=== PATIENT | male | born 1985 | race Caucasian/White ===

== ENCOUNTER → 2017-11-28 16:52 | Outpatient (CLI) | payer OTHER, SELFPAY ==
[2017-11-28 18:12] LABS: BUN 10 mg/dL (7-18); Creatinine, Serum 0.98 mg/dL (0.70-1.30); Glucose 82 mg/dL (74-106)
[2017-11-28 18:13] LABS: Anion Gap 12 (5-15); BUN/Creat Ratio 10.2 RATIO (10-20); Calcium,Total 8.8 mg/dL (8.5-10.1); Chloride 100 mmol/L (98-107); Cholesterol 224 mg/dL (200); EST Glomerular Filtration Rate 93 mL/min (>60); Est Glom Filt Rate - Afr Amer 112 mL/min (>60); High Density Lipoprotein 37 mg/dL; Potassium 3.8 mmol/L (3.5-5.1); Sodium Level 139 mmol/L (136-145); T4 Total, Thyroxin 10.9 ug/dL (4.5-12.1); Triglycerides 188 mg/dL; Very Low Density Lipoprotein 38 mg/dL (5-40)
== END ==
PROVIDERS: Family Provider Family Medicine; PCP Family Medicine; Visit Provider Family Medicine
DX: I10 Essential (primary) hypertension (principal); E03.9 Hypothyroidism, unspecified
CPT/HCPCS: 36415; 80048; 80061; 84436; 84443

== ENCOUNTER 2017-12-29 15:41 | Emergency (ER) | payer OTHER, SELFPAY ==
[2017-12-29 15:43] VITALS: BP 170/99; PULSE 115; RESP 18; TEMP 37.1; O2SAT 97; BMI 42.7
--- NOTE | 2017-12-29 16:27 | ED.DCSUM_ITS ---
- ER Visit Summary Date of Service: 12/29/17 Chief Complaint: Chainsaw versus left thigh History of Present Illness: The patient is a 32 M with a 5 cm laceration left thigh just prior to arrival. No other injuries. Physical Examination: There is a 5 cm laceration medial to the quadricep tendon. Extensor mechanism is intact, both patellar and quad tendons. There is no patella injury. There is no muscle involvement. There is no vascular compromise. Emergency Department Course and Treatment: Tetanus will be updated, wound will be sutured Disposition: [Discharge stable condition] Impression: [Laceration left thigh 5 cm] This note was generated with [employer] dictation software. It may contain incorrect words, spelling, and punctuation that were not noted in review of the chart prior to signing ED Disposition - Plan for ED Patient: Disposition: Home or Assisted Living Chief Complaint: Lower Extremity Injury Instructions: ED Laceration Ext Sutr Stap Tape Referrals: Jenny Buck MD [Primary Care Provider] - 10-14 Days suture removal
[2017-12-29] MEDS: Diphth,Pertuss(Acell),Tet Vac 0.5 ML Vial IM (16:38)
== END 2017-12-29 17:50 | disposition home or self-care (01) ==
PROVIDERS: Emergency Provider Emergency Medicine; Family Provider Family Medicine; PCP Family Medicine
DX: S71.112A Laceration without foreign body, left thigh, initial encounter (principal); W29.3XXA Contact with powered garden and outdoor hand tools and machinery, initial encounter; Y93.9 Activity, unspecified; Y92.9 Unspecified place or not applicable
CPT/HCPCS: 12002; 90715; 99281

== ENCOUNTER → 2019-06-30 16:04 | Outpatient (CLI) | payer OTHER, SELFPAY ==
[2019-06-30 18:18] LABS: Anion Gap 7 (5-15); BUN 15 mg/dL (7-18); BUN/Creat Ratio 15.5 RATIO (10-20); Calcium,Total 9.3 mg/dL (8.5-10.1); Chloride 100 mmol/L (98-107); Cholesterol 248 mg/dL (200); Creatinine, Serum 0.97 mg/dL (0.70-1.30); EST Glomerular Filtration Rate 93 mL/min (>60); Est Glom Filt Rate - Afr Amer 113 mL/min (>60); Glucose 91 mg/dL (74-106); High Density Lipoprotein 41 mg/dL; Potassium 3.9 mmol/L (3.5-5.1); Sodium Level 135 mmol/L (136-145); Triglycerides 201 mg/dL; Very Low Density Lipoprotein 40 mg/dL (5-40)
== END ==
PROVIDERS: PCP Family Medicine; Referring Provider Family Medicine; Visit Provider Family Medicine
DX: I10 Essential (primary) hypertension (principal)
CPT/HCPCS: 36415; 80048; 80061

== ENCOUNTER → 2020-09-08 09:50 | Outpatient (CLI) | payer OTHER, SELFPAY ==
[2020-09-08 12:19] LABS: Anion Gap 6 (5-15); BUN 19 mg/dL (7-18); BUN/Creat Ratio 18.8 RATIO (10-20); Calcium,Total 9.2 mg/dL (8.5-10.1); Chloride 105 mmol/L (98-107); Cholesterol 282 mg/dL (200); Creatinine, Serum 1.01 mg/dL (0.70-1.30); EST Glomerular Filtration Rate 88 mL/min (>60); Est Glom Filt Rate - Afr Amer 107 mL/min (>60); Glucose 100 mg/dL (74-106); High Density Lipoprotein 38 mg/dL; Potassium 4.2 mmol/L (3.5-5.1); Sodium Level 136 mmol/L (136-145); Triglycerides 176 mg/dL; Very Low Density Lipoprotein 35 mg/dL (5-40)
== END ==
PROVIDERS: PCP Family Medicine; Referring Provider Family Medicine; Visit Provider Family Medicine
DX: I10 Essential (primary) hypertension (principal)
CPT/HCPCS: 36415; 80048; 80061

== ENCOUNTER → 2021-10-28 | Outpatient (CLI) | payer OTHER, SELFPAY ==
[2021-10-28 18:20] LABS: Anion Gap 9 (5-15); BUN 16 mg/dL (7-18); BUN/Creat Ratio 15.5 RATIO (10-20); Calcium,Total 9.3 mg/dL (8.5-10.1); Chloride 99 mmol/L (98-107); Cholesterol 226 mg/dL (200); Creatinine, Serum 1.03 mg/dL (0.70-1.30); EST Glomerular Filtration Rate 86 mL/min (>60); Est Glom Filt Rate - Afr Amer 104 mL/min (>60); Glucose 92 mg/dL (74-106); High Density Lipoprotein 32 mg/dL; Sodium Level 132 mmol/L (136-145); Triglycerides 118 mg/dL; Very Low Density Lipoprotein 24 mg/dL (5-40)
== END | disposition home or self-care (01) ==
LOC: MFPLAB 15:40
PROVIDERS: PCP Family Medicine; Referring Provider Family Medicine; Visit Provider Family Medicine
DX: I10 Essential (primary) hypertension (principal)
CPT/HCPCS: 36415; 80048; 80061

== ENCOUNTER → 2022-07-21 | Outpatient (CLI) | payer OTHER, SELFPAY ==
[2022-07-21 17:59] LABS: Anion Gap 6 (5-15); BUN 22 mg/dL (7-18); Chloride 107 mmol/L (98-107); Cholesterol 228 mg/dL (200); Creatinine, Serum 1.22 mg/dL (0.70-1.30); EST Glomerular Filtration Rate 70 mL/min (>60); Est Glom Filt Rate - Afr Amer 85 mL/min (>60); Glucose 95 mg/dL (74-106); High Density Lipoprotein 41 mg/dL; Potassium 4.1 mmol/L (3.5-5.1); Sodium Level 136 mmol/L (136-145); Triglycerides 176 mg/dL; Very Low Density Lipoprotein 35 mg/dL (5-40)
[2022-07-21 18:23] LABS: Microalbumin,Random Urine 30.4 mg/L (NO RANGE EST.); Microalbumin:Creatinine Ratio 12.2 mg/g CRE (<30 mg/g CRE)
== END | disposition home or self-care (01) ==
LOC: MFPLAB 16:08
PROVIDERS: PCP Family Medicine; Visit Provider Family Medicine
DX: E78.5 Hyperlipidemia, unspecified (principal); I10 Essential (primary) hypertension
CPT/HCPCS: 36415; 80048; 80061; 82043; 82570

== ENCOUNTER → 2024-05-02 | Outpatient (CLI) | payer OTHER, SELFPAY ==
[2024-05-02 12:25] LABS: Protein, Urine (Random) < 6.0 mg/dL (<11.9); Protein:Creat Ratio 94 mg/g CRE (0-200)
[2024-05-02 18:11] LABS: Hemoglobin A1c 5.1 % (3.8-5.6)
[2024-05-02 18:25] LABS: AST(SGOT) 28 U/L (15-37); Alanine Aminotransfer ALT/SGPT 61 U/L (16-61); Anion Gap 7 (5-15); BUN 16 mg/dL (7-18); BUN/Creat Ratio 17.2 RATIO (10-20); Calcium,Total 9.5 mg/dL (8.5-10.1); Chloride 102 mmol/L (98-107); Cholesterol 287 mg/dL (200); Creatinine, Serum 0.93 mg/dL (0.70-1.30); EST Glomerular Filtration Rate 95 mL/min (>60); Est Glom Filt Rate - Afr Amer 115 mL/min (>60); Glucose 94 mg/dL (74-106); High Density Lipoprotein 46 mg/dL; Potassium 4.5 mmol/L (3.5-5.1); Sodium Level 137 mmol/L (136-145); Triglycerides 246 mg/dL; Very Low Density Lipoprotein 49 mg/dL (5-40)
== END | disposition home or self-care (01) ==
LOC: MFPLAB 10:35
PROVIDERS: PCP Family Medicine; Referring Provider Family Medicine; Visit Provider Family Medicine
DX: E78.5 Hyperlipidemia, unspecified (principal); E66.01 Morbid (severe) obesity due to excess calories; I10 Essential (primary) hypertension
CPT/HCPCS: 36415; 80048; 80061; 82570; 83036; 84156; 84443; 84450; 84460

== ENCOUNTER → 2024-07-10 | Outpatient (CLI) | payer OTHER, SELFPAY ==
[2024-07-10 17:36] LABS: AST(SGOT) 27 U/L (<=37)
[2024-07-10 18:16] LABS: Alanine Aminotransfer ALT/SGPT 38 U/L (<=46); Cholesterol 289 mg/dL (<=200); High Density Lipoprotein 40 mg/dL; Low Density Lipoprotein Calc. 209 mg/dL; Triglycerides 198 mg/dL; Very Low Density Lipoprotein 40 mg/dL (5-40); cholesterol:hdl ratio screen 7.23
== END | disposition home or self-care (01) ==
LOC: MFPLAB 11:17
PROVIDERS: PCP Family Medicine; Referring Provider Family Medicine; Visit Provider Family Medicine
DX: E78.5 Hyperlipidemia, unspecified (principal)
CPT/HCPCS: 36415; 80061; 84443; 84450; 84460

== ENCOUNTER → 2024-08-06 | Outpatient (CLI) | payer OTHER, SELFPAY | END | disposition home or self-care (01) | LOC: MFPLAB 15:16 | PROVIDERS: PCP Family Medicine; Referring Provider Family Medicine; Visit Provider Family Medicine | DX: E78.5 Hyperlipidemia, unspecified (principal) | CPT/HCPCS: 36415; 84443 ==

== ENCOUNTER → 2024-12-05 | Outpatient (CLI) | payer OTHER, SELFPAY ==
--- OUTSIDE RECORDS SUMMARY | 2024-12-05 15:34 | XMS RPT_ITS | CCD ---
Author Organization [facility] Care Team Providers Care Acid Mixer Name Role Phone Dr. Jenny Buck MD Primary Care Provider Dr. Jenny Buck MD Attending Provider Dr. Jenny Buck MD Referring Provider [phone] Jenny Buck Attending Unavailable Jenny Buck Primary Care Unavailable Jenny Buck Referring Unavailable Jenny Buck Attending Unavailable Jenny Buck Primary Care Unavailable Jenny Buck Referring Unavailable Jenny Buck Attending Unavailable Jenny Buck Primary Care Unavailable Jenny Buck Referring Unavailable Medications Current Medications Medication Drug Class(es) Dates Sig (Normalized) Sig (Original) levothyroxine sodium 0.025 mg oral tablet (3 sources) l-Thyroxine Start: 01-20-2016 take 1 tablet by mouth once daily Levothyroxine 25 MCG tablet Active 25 ug PO DAILY January 20, 2016 12:00am lisinopril 10 mg oral tablet (3 sources) Angiotensin Converting Enzyme Inhibitor Start: 12-16-2015 take 1 tablet by mouth once daily Lisinopril 10 MG tablet Active 10 mg PO DAILY December 16, 2015 12:00am LORazepam 1 mg oral tablet (3 sources) Benzodiazepine Start: 01-23-2016 take 1 tablet by mouth three times daily as needed for anxiety Lorazepam 1 MG tablet Active 1 mg PO 3 TIMES DAILY NEEDED as needed for Anxiety January 23, 2016 12:00am 24 hr metoprolol succinate 50 mg extended release oral tablet (3 sources) beta-Adrenergic Adela Start: 01-20-2016 take 1 tablet by mouth once daily Metoprolol Succinate 50 MG tablet Active 50 mg PO DAILY January 20, 2016 12:00am Completed/Discontinued Medications Medication Drug Class(es) Dates Sig (Normalized) Sig (Original) amoxicillin 500 mg oral capsule (2 sources) Penicillin-class Antibacterial Start: 01-20-2022 End: 01-30-2022 take 2 capsules by mouth twice daily Amoxicillin 500 mg capsule Discontinued 1000 mg PO TWICE A DAY 40 January 20, 2022 12:00am January 29, 2022 12:00am January 30, 2022 12:04am Start: 01-20-2022 End: 01-30-2022 take 1000 mg by mouth twice daily Amoxicillin Discontinued 1000 MG PO TWICE A DAY 40 January 20, 2022 12:00am January 30, 2022 12:04am Problems Problem Classification Problem Date Documented Da te Episodic/Chronic Disorders of lipid metabolism (1 source) Hyperlipidemia, unspecified; Translations: [Hyperlipidemia, unspecified] Onset: 08-12-2024 Chronic Essential hypertension (3 sources) Hypertensive disorder; Translations: [Essential (primary) hypertension] 12-17-2015 Chronic Other upper respiratory infections (2 sources) Acute pharyngitis; Translations: [Acute pharyngitis, unspecified] 01-20-2022 Episodic Results Test Name Value Interpretation Reference Range Facility Thyroid Stim Hormone (TSH)on 08-06-2024 TSH 6.080 uIU/mL High 0.300-4.200 [facility] Comment on above: Order Comment: Order Date: 07/11/24 Order Info: 3016-3 - TSH Performed By: #### L 704.2620 #### [facility] [address], [place], [id number] AST(SGOT)on 07-10-2024 AST [Catalytic activity/Vol] 27 U/L Normal <=37 [facility] Comment on above: Performed By: #### L 501.0900, L501.9985, L500.2500, L500.4100, L501.4100, L501.4405, L501.9520 #### [facility] [address] [place], [address] Alanine Aminotransferas (SGP T)on 07-10-2024 ALT [Catalytic activity/Vol] 38 U/L Normal <=46 [facility] Comment on above: Performed By: #### L 501.0900, L501.9985, L500.2500, L500.4100, L501.4100, L501.4405, L501.9520 #### [facility] [address] [place], [address] Basic Metabolic Profile (BMP )on 07-10-2024 BUN Normal 4-19 [facility] Comment on above: Order Comment: Order Date: 05/02/24 Order Info: 666-04 - BMP Order Info: - LIPID Order Info: 1919-11 - AST Order Info: 1741-09 ALT Order Info: 3015-06 - TSH Result Comment: LABS DONE 05/02/24 Performed By: #### L 500.2500, L500.4100 #### [facility] [address] [place], [address] BUN/CRE Normal 10-20 [facility] Comment on above: Order Comment: Order Date: 05/02/24 Order Info: 666-04 - BMP Order Info: - LIPID Order Info: 1919-11 AST Order Info: 1741-09 ALT Order Info: 3015-06 - TSH Result Comment: LABS DONE 05/02/24 Performed By: #### L 500.2500, L500.4100 #### [facility] [address] [place], [address] Calcium Normal 7.6-11.0 [facility] Comment on above: Order Comment: Order Date: 05/02/24 Order Info: 666-04 - BMP Order Info: - LIPID Order Info: 1919-11 - AST Order Info: 1741-09 ALT Order Info: 3015-06 - TSH Result Comment: LABS DONE 05/02/24 Performed By: #### L 500.2500, L500.4100 #### [facility] [address] [place], [address] CL Normal 98-108 [facility] Comment on above: Order Comment: Order Date: 05/02/24 Order Info: 666-04 - BMP Order Info: - LIPID Order Info: 1919-11 AST Order Info: 1741-09 ALT Order Info: 3015-06 - TSH Result Comment: LABS DONE 05/02/24 Performed By: #### L 500.2500, L500.4100 #### [facility] [address] [place], [address] CO2 Normal 21.0-32.0 [facility] Comment on above: Order Comment: Order Date: 05/02/24 Order Info: 666-04 - BMP Order Info: - LIPID Order Info: 1919-11 - AST Order Info: 1741-09 ALT Order Info: 3015-06 - TSH Result Comment: LABS DONE 05/02/24 Performed By: #### L 500.2500, L500.4100 #### [facility] [address] [place], [address] CREAT,SERUM Normal 0.70-1.20 [facility] Comment on above: Order Comment: Order Date: 05/02/24 Order Info: 666-04 - BMP Order Info: - LIPID Order Info: 1919-11 AST Order Info: 1741-09 ALT Order Info: 3015-06 - TSH Result Comment: LABS DONE 05/02/24 Performed By: #### L 500.2500, L500.4100 #### [facility] [address] [place], [address] eGFR Normal >60 [facility] Comment on above: Order Comment: Order Date: 05/02/24 Order Info: 666-04 - BMP Order Info: - LIPID Order Info: 1919-11 - AST Order Info: 1741-09 ALT Order Info: 3015-06 - TSH Result Comment: LABS DONE 05/02/24 Performed By: #### L 500.2500, L500.4100 #### [facility] [address] [place], [place], [id number] GAP Normal 5-15 [facility] Comment on above: Order Comment: Order Date: 05/02/24 Order Info: 666-04 - BMP Order Info: - LIPID Order Info: 1919-11 AST Order Info: 1741-09 ALT Order Info: 3015-06 - TSH Result Comment: LABS DONE 05/02/24 Performed By: #### L 500.2500, L500.4100 #### [facility] [address] [place], [address] GLU Normal 70-99 [facility] Comment on above: Order Comment: Order Date: 05/02/24 Order Info: 666-04 - BMP Order Info: - LIPID Order Info: 1919-11 AST Order Info: 1741-09 ALT Order Info: 3015-06 - TSH Result Comment: LABS DONE 05/02/24 Performed By: #### L 500.2500, L500.4100 #### [facility] [address] [place], [address] Potassium Normal 3.3-5.1 [facility] Comment on above: Order Comment: Order Date: 05/02/24 Order Info: 666-04 - BMP Order Info: - LIPID Order Info: 1919-11 AST Order Info: 1741-09 ALT Order Info: 3015-06 - TSH Result Comment: LABS DONE 05/02/24 Performed By: #### L 500.2500, L500.4100 #### [facility] [address] [place], [address] Basic Metabolic Profile (BMP) Normal 133-145 [facility] Comment on above: Order Comment: Order Date: 05/02/24 Order Info: 666-04 - BMP Order Info: - LIPID Order Info: 1919-11 AST Order Info: 1741-09 - ALT Order Info: 3015-06 - TSH Result Comment: LABS DONE 05/02/24 Performed By: #### L 500.2500, L500.4100 #### [facility] [address] [place], [place], [address] Calculated very low density lipoprotein (VLDL) cholesterol measurementOrdered By: Jenny Buck on 07-10-2024 VLDL Cholesterol 40 mg/dL 5-40 [facility] LDL calc ser/plasOrdered By: Jenny Buck on 07-10-2024 LDL Cholesterol, Calculated 209 mg/dL [facility] Comment on above: Omypfjyavb=982-363 m g/dL & Higher Yweq=453 mg/dL or greater Laboratory - Chemistry and C hemistry - challengeOrdered By: Jenny Buck on 07-10-2024 AST [Catalytic activity/Vol] 27 U/L <38 [facility] Lipid Profileon 07-10-2024 CHOL:HDL 7.23 Normal [facility] Comment on above: Performed By: #### L 501.0900, L501.9985, L500.2500, L500.4100, L501.4100, L501.4405, L501.9520 #### [facility] [address] [place], [place], [id number] Cholesterol [Mass/Vol] 289 mg/dL High <=200 [facility] Comment on above: Result Comment: Chol esterol level, Desirable <200 mg/dL Borderline high cholesterol 200-239 mg/dL High cholesterol >=240 mg/dL Recommendations of the NCEP Adult Treatment Panel for the following risk-cutoff thresholds for the [place] population. Performed By: #### L 501.0900, L501.9985, L500.2500, L500.4100, L501.4100, L501.4405, L501.9520 #### [facility] [address] [place], [place], [id number] Cholesterol in HDL [Mass/Vol] 40 mg/dL Normal [facility] Comment on above: Result Comment: Tracie onal Cholesterol Education Program (NCEP) guidelines: <40 mg/dL: Low HDL-cholesterol (major risk factor for CHD) >= 60 mg/dL: High HDL-cholesterol (negative risk factor for CHD) HDL-cholesterol is affected by a number of factors, e.g. smoking, exercise, hormones, sex and age. Performed By: #### L 501.0900, L501.9985, L500.2500, L500.4100, L501.4100, L501.4405, L501.9520 #### [facility] [address] [place], [address] Cholesterol in LDL [Mass/Vol] 209 mg/dL Normal [facility] Comment on above: Result Comment: Bord mrojgy=942-008 mg/dL Higher Bdrm=949 mg/dL or greater Performed By: #### L 501.0900, L501.9985, L500.2500, L500.4100, L501.4100, L501.4405, L501.9520 #### [facility] [address] [place], [address] Cholesterol in VLDL [Mass/Vol] 40 mg/dL Normal 5-40 [facility] Comment on above: Performed By: #### L 501.0900, L501.9985, L500.2500, L500.4100, L501.4100, L501.4405, L501.9520 #### [facility] [address] [place], [address] Triglyceride [Mass/Vol] 198 mg/dL Normal [facility] Comment on above: Result Comment: The drugs N-Acetylcysteine and Metamizole may falsely depress this assay. Normal range: <150 mg/dL Borderline High: 150-199 mg/dL High: 200-499 mg/dL Very High: >500 mg/dL Performed By: #### L 501.0900, L501.9985, L500.2500, L500.4100, L501.4100, L501.4405, L501.9520 #### [facility] [address] [place], [address] TRIG Normal [facility] Comment on above: Order Comment: Order Date: 05/02/24 Order Info: 0667-1 - BMP Order Info: - LIPID Order Info: 1919-11 - AST Order Info: 1741-09 ALT Order Info: 3015-06 - TSH Result Comment: LABS DONE 05/02/24 The drugs N-Acetylcysteine and Metamizole may falsely depress this assay. Performed By: #### L 500.2500, L500.4100 #### [facility] [address] [place], [address] CHOL Normal <=200 [facility] Comment on above: Order Comment: Order Date: 05/02/24 Order Info: 666-04 - BMP Order Info: - LIPID Order Info: 1919-11 - AST Order Info: 1741-09 ALT Order Info: 3015-06 - TSH Result Comment: LABS DONE 05/02/24 Performed By: #### L 500.2500, L500.4100 #### [facility] [address] [place], [address] CHOL:HDL Normal [facility] Comment on above: Order Comment: Order Date: 05/02/24 Order Info: 666-04 - BMP Order Info: - LIPID Order Info: 1919-11 - AST Order Info: 1741-09 ALT Order Info: 3015-06 - TSH Result Comment: LABS DONE 05/02/24 Performed By: #### L 500.2500, L500.4100 #### [facility] [address] [place], [address] CLDL Normal [facility] Comment on above: Order Comment: Order Date: 05/02/24 Order Info: 666-04 - BMP Order Info: - LIPID Order Info: 1919-11 AST Order Info: 1741-09 ALT Order Info: 3015-06 - TSH Result Comment: LABS DONE 05/02/24 Performed By: #### L 500.2500, L500.4100 #### [facility] [address] [place], [address] HDL Normal [facility] Comment on above: Order Comment: Order Date: 05/02/24 Order Info: 0667-1 - BMP Order Info: 03085-4 - LIPID Order Info: 1919-11 - AST Order Info: 1741-09 - ALT Order Info: 3015- - TSH Result Comment: LABS DONE 05/02/24 Performed By: #### L 500.2500, L500.4100 #### [facility] [address] [place], [place], [address] VLDL Normal 5-40 [facility] Comment on above: Order Comment: Order Date: 05/02/24 Order Info: 0667- - BMP Order Info: 50262-5 - LIPID Order Info: 1919-11 - AST Order Info: 1741-09 - ALT Order Info: 3015-3 - TSH Result Comment: LABS DONE 05/02/24 Performed By: #### L 500.2500, L500.4100 #### [facility] [address] [place], [place], [address] Screening total cholesterol/ high density lipoprotein (HDL) cholesterol ratioOrdered By: Jenny Buck on 07-10-2024 Cholesterol.total/Choles terol in HDL [Mass ratio] 7.23 {ratio} [facility] Serum or plasma alanine leong otransferase (ALT) measurementOrdered By: Jenny Buck on 07-10-2024 ALT [Catalytic activity/Vol] 38 U/L <47 [facility] Serum or plasma cholesterol in HDL measurement (mass/volume)Ordered By: Jenny Buck on 07-10-2024 Cholesterol in HDL [Mass/Vol] 40 mg/dL >40 [facility] Comment on above: National Cholesterol Education Program (NCEP) guidelines:<40 mg/dL: Low HDL-cholesterol (major risk factor for CHD)>= 60 mg/dL: High HDL-cholesterol (negative risk factor for CHD)HDL-cholesterol is affected by a number of factors, e.g. smoking, exercise, hormones, sex and age. Serum or plasma cholesterol measurement (mass/volume)Ordered By: Jenny Buck on 07-10-2024 Cholesterol [Mass/Vol] 289 mg/dL High <201 [facility] Comment on above: Cholesterol level, D esirable <200 mg/dLBorderline high cholesterol 200-239 mg/dLHigh cholesterol >=240 mg/dLRecommendations of the NCEP Adult Treatment Panel for the following risk-cutoff thresholds for the [place] population. TSH DL <= 0.005 mIU/L QnOrde red By: Jenny Buck on 07-10-2024 Thyroid Stimulating Hormone (TSH) 5.580 uIU/mL High 0.300-4.200 [facility] Comment on above: Previous reported re sult: 5.550 uIU/mLEdited by: SHAILA on 07/10/24:1816 AMENDED REPORT 07/10/241815 TSH previously reported as: 5.550 H uIU/mL Thyroid Stim Hormone (TSH)on 07-10-2024 TSH 5.580 uIU/mL High 0.300-4.200 [facility] Comment on above: Result Comment: AMENDED REPORT 07/10/241815 TSH previously reported as: 5.550 H uIU/mL Performed By: #### L 501.0900, L501.9985, L500.2500, L500.4100, L501.4100, L501.4405, L501.9520 #### [facility] [address] [place], [place], [id number] Triglycerides measurementOrd ered By: Jenny Buck on 07-10-2024 Triglyceride [Mass/Vol] 198 mg/dL <199 [facility] Comment on above: The drugs N-Acetylcy steine and Metamizole may falsely depress this assay. Normal range: <150 mg/dLBorderline High: 150-199 mg/dLHigh: 200-499 mg/dLVery High: >500 mg/dL AST(SGOT)on 05-02-2024 AST [Catalytic activity/Vol] 28 U/L Normal 15-37 [facility] Comment on above: Performed By: #### L 501.0900, L501.9985, L500.2500, L500.4100, L501.4100, L501.4405, L501.9520 #### [facility] [address] [place], [address] Alanine Aminotransferas (SGP T)on 05-02-2024 ALT [Catalytic activity/Vol] 61 U/L Normal 16-61 [facility] Comment on above: Performed By: #### L 501.0900, L501.9985, L500.2500, L500.4100, L501.4100, L501.4405, L501.9520 #### [facility] [address] [place], [address] Basic Metabolic Profile (BMP )on 05-02-2024 BUN/CRE 17.2 RATIO Normal 10-20 [facility] Comment on above: Performed By: #### L 501.0900, L501.9985, L500.2500, L500.4100, L501.4100, L501.4405, L501.9520 #### [facility] [address] [place], [address] CA,Total 9.5 mg/dL Normal 8.5-10.1 [facility] Comment on above: Performed By: #### L 501.0900, L501.9985, L500.2500, L500.4100, L501.4100, L501.4405, L501.9520 #### [facility] [address] [place], [address] Chloride [Moles/Vol] 102 mmol/L Normal 98-107 [facility] Comment on above: Performed By: #### L 501.0900, L501.9985, L500.2500, L500.4100, L501.4100, L501.4405, L501.9520 #### [facility] [address] [place], [address] CO2 [Moles/Vol] 27.0 mmol/L Normal 21.0-32.0 [facility] Comment on above: Performed By: #### L 501.0900, L501.9985, L500.2500, L500.4100, L501.4100, L501.4405, L501.9520 #### [facility] [address] [place], [place], [id number] Creatinine [Mass/Vol] 0.93 mg/dL Normal 0.70-1.30 [facility] Comment on above: Result Comment: The validity of the calculated GFR GFRAA in patients over 70 years has not been determined. Clinical correlation is essential. Performed By: #### L 501.0900, L501.9985, L500.2500, L500.4100, L501.4100, L501.4405, L501.9520 #### [facility] [address] [place], [address] EST GFR - AA 115 mL/min Normal >60 [facility] Comment on above: Result Comment: Afri can [place] GFR Calc Performed By: #### L 501.0900, L501.9985, L500.2500, L500.4100, L501.4100, L501.4405, L501.9520 #### [facility] [address] [place], [address] GAP 7 Normal 5-15 [facility] Comment on above: Performed By: #### L 501.0900, L501.9985, L500.2500, L500.4100, L501.4100, L501.4405, L501.9520 #### [facility] [address] [place], [place], [id number] GFR/1.73 sq M.predicted among non-blacks MDRD (S/P/Bld) [Vol rate/Area] 95 mL/min/{1.73_m2} Normal >60 [facility] Comment on above: Result Comment: Non- GFR Calc Performed By: #### L 501.0900, L501.9985, L500.2500, L500.4100, L501.4100, L501.4405, L501.9520 #### [facility] [address] [place], [address] Glucose [Mass/Vol] 94 mg/dL Normal 74-106 [facility] Comment on above: Performed By: #### L 501.0900, L501.9985, L500.2500, L500.4100, L501.4100, L501.4405, L501.9520 #### [facility] [address] [place], [address] Potassium [Moles/Vol] 4.5 mmol/L Normal 3.5-5.1 [facility] Comment on above: Performed By: #### L 501.0900, L501.9985, L500.2500, L500.4100, L501.4100, L501.4405, L501.9520 #### [facility] [address] [place], [address] Sodium [Moles/Vol] 137 mmol/L Normal 136-145 [facility] Comment on above: Performed By: #### L 501.0900, L501.9985, L500.2500, L500.4100, L501.4100, L501.4405, L501.9520 #### [facility] [address] [place], [address] Urea nitrogen [Mass/Vol] 16 mg/dL Normal 7-18 [facility] Comment on above: Performed By: #### L 501.0900, L501.9985, L500.2500, L500.4100, L501.4100, L501.4405, L501.9520 #### [facility] [address] [place], [address] Blood urea nitrogen (BUN)/cr eatinine ratioOrdered By: Jenny Buck on 05-02-2024 Urea nitrogen/Creatinine [Mass ratio] 17.2 mg/mg 10-20 [facility] Carbon dioxide measurementOr dered By: Jenny Buck on 05-02-2024 CO2 [Moles/Vol] 27.0 mmol/L 21.0-32.0 [facility] Chloride measurementOrdered By: Jenny Buck on 05-02-2024 Chloride [Moles/Vol] 102 mmol/L 98-107 [facility] Estimated glomerular filtrat ion rate (GFR) AmericanOrdered By: Jenny Buck on 05-02-2024 Estimated GFR (MDRD) Amer 115 mL/min >60 [facility] Comment on above: GFR Calc Glomerular filtration rate ( GFR) estimationOrdered By: Jenny Buck on 05-02-2024 Estimated GFR (MDRD) Non-Af Amer 95 mL/min >60 [facility] Comment on above: Non- GFR Calc Glucose measurementOrdered B y: Jenny Buck on 05-02-2024 Glucose [Mass/Vol] 94 mg/dL 74-106 [facility] Hemoglobin A1con 05-02-2024 HbA1c (Bld) [Mass fraction] 5.1 % Normal 3.8-5.6 [facility] Comment on above: Result Comment: Norm al < 5.7 % Prediabetic 5.7 - 6.4 % Diabetic >or= 6.5 % Please note range changes. Performed By: #### L 501.0900, L501.9985, L500.2500, L500.4100, L501.4100, L501.4405, L501.9520 #### [facility] [address] [place] [address]. [place], [place], [id number] Hemoglobin A1c percentageOrd ered By: Jenny Buck on 05-02-2024 HbA1c (Bld) [Mass fraction] 5.1 % 3.8-5.6 [facility] Comment on above: Normal < 5.7 % Predi abetic 5.7 - 6.4 % Diabetic >or= 6.5 % Please note range changes. High density lipoprotein (HD L) measurementOrdered By: Jenny Buck on 05-02-2024 Cholesterol in HDL [Mass/Vol] 46 mg/dL >40 [facility] Comment on above: The drugs N-Acetylcy steine and Metamizole may falsely depress this assay. Reference Range HDL <40 mg/dL Low HDL Cholesterol HDL >or= 60 mg/dL High HDL Cholesterol Laboratory - Chemistry and C hemistry - challengeOrdered By: Jenny Buck on 05-02-2024 AST [Catalytic activity/Vol] 28 U/L 15-37 [facility] Lipid Profileon 05-02-2024 Cholesterol [Mass/Vol] 287 mg/dL High 200 [facility] Comment on above: Result Comment: <200 mg/dL Desirable 200-240 mg/dL Borderline >240 mg/dL High Risk Performed By: #### L 501.0900, L501.9985, L500.2500, L500.4100, L501.4100, L501.4405, L501.9520 #### [facility] [address] [place], [address] Cholesterol in HDL [Mass/Vol] 46 mg/dL Normal [facility] Comment on above: Result Comment: The drugs N-Acetylcysteine and Metamizole may falsely depress this assay. Reference Range HDL <40 mg/dL Low HDL Cholesterol HDL >or= 60 mg/dL High HDL Cholesterol Performed By: #### L 501.0900, L501.9985, L500.2500, L500.4100, L501.4100, L501.4405, L501.9520 #### [facility] [address] [place], [address] Cholesterol in LDL [Mass/Vol] 192 mg/dL High 0-130 [facility] Comment on above: Performed By: #### L 501.0900, L501.9985, L500.2500, L500.4100, L501.4100, L501.4405, L501.9520 #### [facility] [address] [place], [address] Cholesterol in VLDL [Mass/Vol] 49 mg/dL High 5-40 [facility] Comment on above: Performed By: #### L 501.0900, L501.9985, L500.2500, L500.4100, L501.4100, L501.4405, L501.9520 #### [facility] [address] [place], [address] Triglyceride [Mass/Vol] 246 mg/dL High [facility] Comment on above: Result Comment: The drugs N-Acetylcysteine and Metamizole may falsely depress this assay. Serum Triglycerides Reference Interval Normal <150 mg/dL Borderline high 150 - 199 mg/dL High 200 - 499 mg/dL Very High > or = 500 mg/dL Performed By: #### L 501.0900, L501.9985, L500.2500, L500.4100, L501.4100, L501.4405, L501.9520 #### [facility] [address] [place], [address] Low density lipoprotein (LDL ) cholesterol measurementOrdered By: Jenny Buck on 05-02-2024 Cholesterol in LDL [Mass/Vol] 192 mg/dL High 0-130 [facility] Potassium measurementOrdered By: Jenny Buck on 05-02-2024 Potassium [Moles/Vol] 4.5 mmol/L 3.5-5.1 [facility] Protein+Creatinine Ratio,Uri neon 05-02-2024 PROT:CRE RATIO 94 mg/g CRE Normal 0-200 [facility] Comment on above: Performed By: #### L 501.0900, L501.9985, L500.2500, L500.4100, L501.4100, L501.4405, L501.9520 #### [facility] [address] [place], [address] PROTEIN,UR.RAN. < 6.0 Normal <11.9 [facility] Comment on above: Performed By: #### L 501.0900, L501.9985, L500.2500, L500.4100, L501.4100, L501.4405, L501.9520 #### [facility] [address] [place], [address] UR CREAT 60.80 mg/dL Normal NO RANGE EST. [facility] Comment on above: Performed By: #### L 501.0900, L501.9985, L500.2500, L500.4100, L501.4100, L501.4405, L501.9520 #### [facility] [address] [place], [address] Protein/Creatinine (U) [Mass ratio]Ordered By: Jenny Buck on 05-02-2024 Urine Protein/Creatinine Ratio 94 mg/g CRE 0-200 [facility] Random urine protein measure mentOrdered By: Jenny Buck on 05-02-2024 Urine Random Total Protein < 6.0 mg/dL 0.0-11.8 [facility] Serum anion gap measurementO rdered By: Jenny Buck on 05-02-2024 Anion gap [Moles/Vol] 7 mmol/L 5-15 [facility] Serum or plasma alanine leong otransferase (ALT) measurementOrdered By: Jenny Buck on 05-02-2024 ALT [Catalytic activity/Vol] 61 U/L 16-61 [facility] Serum or plasma calcium el urement (mass/volume)Ordered By: Jenny Buck on 05-02-2024 Calcium [Mass/Vol] 9.5 mg/dL 8.5-10.1 [facility] Serum or plasma cholesterol measurement (mass/volume)Ordered By: Jenny Buck on 05-02-2024 Cholesterol [Mass/Vol] 287 mg/dL High <200 [facility] Comment on above: <200 mg/dL Desirable 200-240 mg/dL Borderline >240 mg/dL High Risk Serum or plasma creatinine m easurement (mass/volume)Ordered By: Jenny Buck on 05-02-2024 Creatinine [Mass/Vol] 0.93 mg/dL 0.70-1.30 [facility] Comment on above: The validity of the calculated GFR & GFRAA in patients over 70 years has not been determined. Clinical correlation is essential. Serum or plasma urea nitroge n measurement (mass/volume)Ordered By: Jenny Buck on 05-02-2024 Urea nitrogen [Mass/Vol] 16 mg/dL 7-18 [facility] Sodium levelOrdered By: Jenny Buck on 05-02-2024 Sodium [Moles/Vol] 137 mmol/L 136-145 [facility] TSH QnOrdered By: Jenny muller on 05-02-2024 Thyroid Stimulating Hormone (TSH) 8.180 uIU/mL High 0.358-3.740 [facility] Thyroid Stim Hormone (TSH)on 05-02-2024 TSH 8.180 uIU/mL High 0.358-3.740 [facility] Comment on above: Performed By: #### L 501.0900, L501.9985, L500.2500, L500.4100, L501.4100, L501.4405, L501.9520 #### [facility] [address] [place], [address] Triglycerides measurementOrd ered By: Jenny Buck on 05-02-2024 Triglyceride [Mass/Vol] 246 mg/dL High <199 [facility] Comment on above: The drugs N-Acetylcy steine and Metamizole may falsely depress this assay.Serum Triglycerides Reference Interval Normal <150 mg/dL Borderline high 150 - 199 mg/dL High 200 - 499 mg/dL Very High > or = 500 mg/dL Urine creatinine measurement (mass/volume)Ordered By: Jenny Buck on 05-02-2024 Creatinine (U) [Mass/Vol] 60.80 mg/dL NO RANGE EST. [facility] Very low density lipoprotein (VLDL) cholesterol measurementOrdered By: Jenny Buck on 05-02-2024 VLDL Cholesterol 49 mg/dL High 5-40 [facility] Basophil percentageOrdered B y: Dr. Buck on 07-21-2022 Chloride [Moles/Vol] 107 mmol/L 98-107 [facility] Cholesterol [Mass/Vol] 228 mg/dL <200 [facility] Comment on above: <200 mg/dL Desirable 200-240 mg/dL Borderline >240 mg/dL High Risk Glucose [Mass/Vol] 95 mg/dL 74-106 [facility] Potassium [Moles/Vol] 4.1 mmol/L 3.5-5.1 [facility] Sodium [Moles/Vol] 136 mmol/L 136-145 [facility] Triglyceride [Mass/Vol] 176 mg/dL <199 [facility] Comment on above: The drugs N-Acetylcy steine and Metamizole may falsely depress this assay.Serum Triglycerides Reference Interval Normal <150 mg/dL Borderline high 150 - 199 mg/dL High 200 - 499 mg/dL Very High > or = 500 mg/dL Laboratory - Chemistry and C hemistry - challengeOrdered By: Dr. Buck on 07-21-2022 CO2 [Moles/Vol] 23.0 mmol/L 21.0-32.0 [facility] Urea nitrogen/Creatinine [Mass ratio] 18.0 mg/mg 10-20 [facility] No Panel InformationOrdered By: Dr. Buck on 07-21-2022 Estimated GFR (MDRD) Amer 85 mL/min >60 [facility] Comment on above: GFR Calc Estimated GFR (MDRD) Non-Af Amer 70 mL/min >60 [facility] Comment on above: Non- GFR Calc Urine Microalbumin/Creatinine Ratio 12.2 mg/g CRE <30 [facility] Serum or plasma calcium el urement (mass/volume)Ordered By: Dr. Buck on 07-21-2022 Calcium [Mass/Vol] 9.0 mg/dL 8.5-10.1 [facility] Serum or plasma cholesterol in HDL measurement (mass/volume)Ordered By: Dr. Buck on 07-21-2022 Cholesterol in HDL [Mass/Vol] 41 mg/dL >40 [facility] Comment on above: The drugs N-Acetylcy steine and Metamizole may falsely depress this assay. Reference Range HDL <40 mg/dL Low HDL Cholesterol HDL >or= 60 mg/dL High HDL Cholesterol Serum or plasma cholesterol in VLDL measurement (mass/volume)Ordered By: Dr. Buck on 07-21-2022 Cholesterol in VLDL [Mass/Vol] 35 mg/dL 5-40 [facility] Serum or plasma creatinine m easurement (mass/volume)Ordered By: Dr. Buck on 07-21-2022 Creatinine [Mass/Vol] 1.22 mg/dL 0.70-1.30 [facility] Comment on above: The validity of the calculated GFR & GFRAA in patients over 70 years has not been determined. Clinical correlation is essential. Serum or plasma low density lipoprotein (LDL) cholesterol measurement (mass/volume)Ordered By: Dr. Buck on 07-21-2022 Cholesterol in LDL [Mass/Vol] 152 mg/dL 0-130 [facility] Serum or plasma urea nitroge n measurement (mass/volume)Ordered By: Dr. Buck on 07-21-2022 Urea nitrogen [Mass/Vol] 22 mg/dL 7-18 [facility] Thin prep Papanicolaou smear with manual screeningOrdered By: Dr. Buck on 07-21-2022 Thin prep Papanicolaou smear with manual screening 6 5-15 [facility] Thin prep Papanicolaou smear with manual screening 30.4 mg/L NO RANGE EST. [facility] Urine creatinine measurement (mass/volume)Ordered By: Dr. Buck on 07-21-2022 Creatinine (U) [Mass/Vol] 249.00 mg/dL NO RANGE EST. [facility] Basophil percentageon 2021 Chloride [Moles/Vol] 99 mmol/L 98-107 [facility] Work Phone: Cholesterol [Mass/Vol] 226 mg/dL <200 [facility] Work Phone: Comment on above: <200 mg/dL Desirable 200-240 mg/dL Borderline >240 mg/dL High Risk Glucose [Mass/Vol] 92 mg/dL 74-106 [facility] Work Phone: Potassium [Moles/Vol] 4.0 mmol/L 3.5-5.1 [facility] Work Phone: Sodium [Moles/Vol] 132 mmol/L 136-145 [facility] Work Phone: Triglyceride [Mass/Vol] 118 mg/dL <199 [facility] Work Phone: Comment on above: The drugs N-Acetylcy steine and Metamizole may falsely depress this assay.Serum Triglycerides Reference Interval Normal <150 mg/dL Borderline high 150 - 199 mg/dL High 200 - 499 mg/dL Very High > or = 500 mg/dL Laboratory - Chemistry and C hemistry - challengeon 10-28-2021 CO2 [Moles/Vol] 24.0 mmol/L 21.0-32.0 [facility] Work Phone: Urea nitrogen/Creatinine [Mass ratio] 15.5 mg/mg 10-20 [facility] Work Phone: No Panel Informationon 10-28 Estimated GFR (MDRD) Amer 104 mL/min >60 [facility] Work Phone: Comment on above: GFR Calc Estimated GFR (MDRD) Non-Af Amer 86 mL/min >60 [facility] Work Phone: Comment on above: Non- GFR Calc Serum or plasma calcium el urement (mass/volume)on 10-28-2021 Calcium [Mass/Vol] 9.3 mg/dL 8.5-10.1 [facility] Work Phone: Serum or plasma cholesterol in HDL measurement (mass/volume)on 10-28-2021 Cholesterol in HDL [Mass/Vol] 32 mg/dL >40 [facility] Work Phone: Comment on above: The drugs N-Acetylcy steine and Metamizole may falsely depress this assay. Reference Range HDL <40 mg/dL Low HDL Cholesterol HDL >or= 60 mg/dL High HDL Cholesterol Serum or plasma cholesterol in VLDL measurement (mass/volume)on 10-28-2021 Cholesterol in VLDL [Mass/Vol] 24 mg/dL 5-40 [facility] Work Phone: Serum or plasma creatinine m easurement (mass/volume)on 10-28-2021 Creatinine [Mass/Vol] 1.03 mg/dL 0.70-1.30 [facility] Work Phone: Comment on above: The validity of the calculated GFR & GFRAA in patients over 70 years has not been determined. Clinical correlation is essential. Serum or plasma low density lipoprotein (LDL) cholesterol measurement (mass/volume)on 10-28-2021 Cholesterol in LDL [Mass/Vol] 170 mg/dL 0-130 [facility] Work Phone: Serum or plasma urea nitroge n measurement (mass/volume)on 10-28-2021 Urea nitrogen [Mass/Vol] 16 mg/dL 7-18 [facility] Work Phone: Thin prep Papanicolaou smear with manual screeningon 10-28-2021 Thin prep Papanicolaou smear with manual screening 9 5-15 [facility] Work Phone: Encounters Encounter Date Encounter Type Care Provider Facility Start: 08-06-2024 End: 08-06-2024 ambulatory Jenny Buck Facility:[facility] Start: 07-10-2024 End: 07-10-[address] Jenny Buck MD Work Phone: [facility] Work Phone: Start: 07-10-2024 End: 07-10-[address] [facility]: 07-10-2024 End: 07-10-2024 ambulatory Jenny Buck Facility:[facility] Start: 05-02-2024 End: 05-02-[address] Jenny Buck MD -Laboratory, [facility] Start: 05-02-2024 End: 05-02-2024 ambulatory Jenny Buck Facility:[facility] Start: 07-21-2022 End: 07-21-2022 ambulatory [facility] Work Phone: Start: 07-21-2022 End: 07-21-2022 Patient encounter procedure [facility] Start: 10-28-2021 End: 10-28-2021 Patient encounter procedure [facility] Immunizations Immunization Date Immunization Notes Care Provider Karime lynn 12-29-2017 tetanus toxoid, redu giovany diphtheria toxoid, and acellular pertussis vaccine, adsorbed [facility] Payers Date Payer Category Payer Self-pay [id number] 2008 Unknown [id number] Unknown [id number] Unknown [id number] Unknown [id number] Social History Date Type Detail Facility Start: 12-29-2017 End: 01-20-2022 Tobacco smoking status HIIS Unknown if ever smoked [facility] Start: 1985 Sex Assigned At Male [facility] Start: 01-20-2022 Tobacco smoking stat [facility] Never smoked tobacco (finding) [facility] Start: 07-16-2024 Sex Male (finding) [facility] Evaluation note Note Date & Type Note Facility Evaluation note No assessment information availa ble [facility] Work Phone: Reason for referral (narrative) Note Date & Type Note Facility Reason for referral (narrative) No reason for referral information available [facility] Work Phone: Advance Directives No Advanced Directives Records Found Advance Directive Response Recorded Date/ Time Living Will Yes December 29, 2017 4:09pm Power of Pinion Staker No December 4:09pm Summary Purpose Family History No Family History Records Found Additional Source Comments Goals (unrecognized section and content) Goals may be documented in a n alternate sectionGoals may be documented in an alternate sectionGoals may be documented in an alternate section Care Teams (unrecognized sec tion and content) Team Status: Active Member Role Status Dates Dr. Jenny Buck MD Family Provider Active Dr. Jenny Buck MD Primary Care Provider Active Team Status: Inactive Member Role Status Dates Dr. Jenny Buck MD Primary Care Provider, Attendwa g Provider Active Team Status: Inactive Member Role Status Dates Dr. Jenny Buck MD Primary Care Provider Active Start: May 02, 2024 End: May 02, 2024 Dr. Jenny Buck MD Attending Provider Active Start: May 02, 2024 End: May 02, 2024 Dr. Jenny Buck MD Referring Provider Active Start: May 02, 2024 End: May 02, 2024 Team Status: Inactive Member Role Status Dates Dr. Jenny Buck MD Primary Care Provider Active Start: July 10, 2024 End: July 10, 2024 Dr. Jenny Buck MD Attending Provider Active Start: July 10, 2024 End: July 10, 2024 Dr. Jenny Buck MD Referring Provider Active Start: July 10, 2024 End: July 10, 2024 (unrecognized sect ion and content) No Status Records Found INFORMATION SOURCE (unrecogn ized section and content) DATE CREATED AUTHOR 08/15/2024 [facility] FOR RECORDS PERTAINING TO PATIENTS WHO ARE OR HAVE BEEN ENROLLED IN A CHEMICAL DEPENDENCY/SUBSTANCEABUSE PROGRAM, SOME INFORMATION MAY BE OMITTED. This clinical summary was aggregated from multiple sources. Caution should be exercised in using it in the provision of clinical care. This summary normalizes information from multiple sources, and as a consequence, information in this document may materially change the coding, format and clinical context of patient data. In addition, data may be omitted in some cases. CLINICAL DECISIONS SHOULD BE BASED ON THE PRIMARY CLINICAL RECORDS. [employer] [facility]. provides no warranty or guarantee of the accuracy or completeness of information in this document.
== END | disposition home or self-care (01) ==
LOC: MFPLAB 11:36
PROVIDERS: PCP Family Medicine; Referring Provider Family Medicine; Visit Provider Family Medicine
DX: E03.9 Hypothyroidism, unspecified (principal)
CPT/HCPCS: 36415; 84439; 84443